=== PATIENT | female | born 1965 | race Caucasian/White ===

== ENCOUNTER 2017-05-16 07:22 | Day surgery (SDC) | payer OTHER ==
[2017-05-16] MEDS ORDERED: MIDAZOLAM 1 MG/ML 2 ML INJ ×2 (11:00)
[2017-05-16] MEDS ORDERED: FENTAnyl 50 MCG/ML VIAL (11:01)
== END 2017-05-16 15:22 | disposition home or self-care (01) ==
LOC: GIL 07:22
DX: Z12.11 Encounter for screening for malignant neoplasm of colon (principal); K57.90 Diverticulosis of intestine, part unspecified, without perforation or abscess without bleeding; K64.8 Other hemorrhoids
CPT/HCPCS: 45378

== ENCOUNTER 2018-07-31 10:51 | Day surgery (SDC) | payer OTHER ==
[~2018-07-31 10:51] MED LIST: LACTATED RINGER'S 1,000 ML IV*
[2018-07-31] MEDS ORDERED: FENTAnyl 50 MCG/ML VIAL (12:09)
[2018-07-31] MEDS ORDERED: MIDAZOLAM 1 MG/ML 2 ML INJ (12:09)
[2018-07-31] MEDS ORDERED: PROPOFOL 20 ML (12:09)
[2018-07-31] MEDS ORDERED: LIDOCAINE 2% (SDV) 5 ML INJ (12:09)
[2018-07-31] MEDS ORDERED: CEFAZOLIN 1 GM INJ (13:25)
[2018-07-31] MEDS ORDERED: DEXAMETHASONE 4 MG/ML 5 ML INJ (13:29)
[2018-07-31] MEDS ORDERED: METOCLOPRAMIDE 10 MG INJ (13:29)
[2018-07-31] MEDS ORDERED: ONDANSETRON 4 MG INJ (13:29)
[2018-07-31] MEDS ORDERED: FAMOTIDINE 20 MG INJ (13:30)
[2018-07-31] MEDS ORDERED: OXYCODONE/ACETAMINOPHEN (5/325) TAB PO ×2 (14:00)
[2018-07-31] MEDS ORDERED: MIDAZOLAM 1 MG/ML 2 ML INJ IV (14:00)
[2018-07-31] MEDS ORDERED: FENTAnyl 50 MCG/ML VIAL IV ×3 (14:00)
[2018-07-31] MEDS ORDERED: ONDANSETRON 4 MG INJ IV (14:00)
[2018-07-31] MEDS: MEPERIDINE 25 MG INJ IV (15:10)
== END 2018-07-31 16:25 | disposition home or self-care (01) ==
LOC: SDS 10:51
DX: D25.0 Submucous leiomyoma of uterus (principal); N95.0 Postmenopausal bleeding
CPT/HCPCS: 58558; 88305